=== PATIENT | male | born 1980 | race African-American/Black ===

== ENCOUNTER 2022-11-19 09:50 | Emergency (ER) | payer MEDICAID ==
[~2022-11-19] VITALS: Ht 182.9 cm; Wt 90.0 kg
[2022-11-19 10:20] VITALS: BP 143/100
[2022-11-19] MEDS ORDERED: NALOXONE HCL 1 MG/ML 2ML VIAL IV ONE (10:30)
[2022-11-19] MEDS ORDERED: SODIUM CHLORIDE 0.9% 1,000 ML IV ONE (10:30)
[2022-11-19 10:49] LABS: BASOPHILS % 0.5 % (0.0-2.0); EOSINOPHILS % 0.6 % (0.0-5.0); HEMATOCRIT. 36.1 % (42.0-52.0); HEMOGLOBIN. 11.8 g/dL (14.0-18.0); LYMPHOCYTES % 19.9 % (20.0-50.0); MEAN CORPUSCULAR HEMOGLOBIN 23.7 pg (28.0-32.0); MEAN CORPUSCULAR VOLUME 72.6 fL (80.0-94.0); MEAN PLATELET VOLUME 7.6 fl (7.4-10.4); MONOCYTES % 8.9 % (2.0-8.0); NEUTROPHILS % 70.1 % (40.0-76.0); PLATELET 302 x1000/uL (130-400); RED BLOOD CELL COUNT 4.98 mill/uL (4.7-6.1); RED CELL DISTRIBUTION WIDTH 13.3 % (11.6-14.6)
[2022-11-19 10:58] LABS: CHLORIDE 107 mEq/L (98-107)
[2022-11-19 11:17] LABS: CREATINE KINASE 2180 IU/L (39-308); ETHANOL BLOOD < 10 mg/dL
== END 2022-11-19 11:34 | disposition left against medical advice (07) ==
LOC: ER 09:50
DX: G93.40 Encephalopathy, unspecified (principal); F20.9 Schizophrenia, unspecified; F15.90 Other stimulant use, unspecified, uncomplicated; Z79.899 Other long term (current) drug therapy
CPT/HCPCS: 36415; 80053; 80307; 80320; 80329; 82140; 82550; 83605; 83690; 85025; 99283; J7030; Z7610; G0480